=== PATIENT | male | born 1995 | race Caucasian/White ===

== ENCOUNTER 2017-08-01 19:26 | Emergency (ER) | payer OTHER ==
[2017-08-01 19:34] VITALS: BP 133/48
[2017-08-01] MEDS ORDERED: DEXAMETHASONE 10 MG/ML VIAL PO STA (20:36)
[2017-08-01] MEDS ORDERED: KETOROLAC 60 MG/2 ML VIAL IM STA (20:36)
--- NOTE | 2017-08-01 20:37 | ED Physician Documentation ---
PD HPI NECK PAIN - Stated complaint Stated Complaint: NECK PX - Chief complaint Chief Complaint: Ext Problem - History obtained from History obtained from: Patient - History of Present Illness Timing - onset: Yesterday Timing - details: Abrupt onset Location: Lower, Left Quality: Pain, Spasm Associated symptoms: No: Fever, Weakness Worsened by: Movement, Palpation Similar symptoms before: No diagnosis Recently seen: Not recently seen - Additional information Additional information: Patient is a 21 year old male with no significant past medical history who is presenting to the emergency department for neck pain. patient states that he was snowboarding yesterday and went off a jump but caught an edge so he landed on his shoulder and his head. patient states that he had a mild headache today but worsening neck pain. Patient states that he blacked out for a second right after the jump but he denies nausea, vomiting, change in vision or headache today. Review of Systems Constitutional: denies: Fever Eyes: denies: Decreased vision Ears: denies: Drainage/discharge Nose: denies: Epistaxis Throat: denies: Dental pain / toothache Cardiac: denies: Chest pain / pressure, Palpitations Respiratory: denies: Dyspnea GI: denies: Nausea, Vomiting : reports: Reviewed and negative Skin: denies: Lesions, Abrasion (s) Musculoskeletal: reports: Neck pain Neurologic: denies: Generalized weakness, Headache Immunocompromised: denies: Immunocompromised PD PAST MEDICAL HISTORY - Present Medications Home Medications: Ambulatory Orders Medication Instructions Recorded Confirmed Cyclobenzaprine [Flexeril] 10 mg PO TID PRN #14 tablet 08/01/17 - Allergies Allergies/Adverse Reactions: Allergies Allergy/AdvReac Type Severity Reaction Status Date / Time No Known Drug Allergies Allergy Verified 08/01/17 19:33 PD ED PE NORMAL - Vitals Vital signs reviewed: Yes - General General: Alert and oriented X 3, No acute distress - HEENT HEENT: Atraumatic, PERRL - Neck Neck: Supple, no meningeal sign - Cardiac Cardiac: RRR, No murmur - Respiratory Respiratory: No respiratory distress - Abdomen Abdomen: Soft, Non tender, Non distended - Derm Derm: Normal color, No rash - Extremities Extremities: No deformity, Normal ROM s pain - Neuro Neuro: Alert and oriented X 3, No motor deficit, No sensory deficit, Normal speech Eye Opening: Spontaneous Motor: Obeys Commands Verbal: Oriented GCS Score: 15 - Psych Psych: Normal mood PD ED PE EXPANDED - Neck Neck: Soft tissue TTP (tenderness to palpation of scm muscle and trapezious) Results - Vitals Vitals: Vital Signs - 24 hr 08/01/17 19:30 Temperature 37.2 C Heart Rate 56 L Respiratory 16 Rate Blood Pressure 133/48 H O2 Saturation 100 Oxygen O2 Source Room air PD MEDICAL DECISION MAKING - ED course Complexity details: reviewed old records, reviewed results, re-evaluated patient , considered differential, d/w patient ED course: patient was seen and examined at bedside. Patient had no neurological deficits. Patient was treated with decadron and toradol. patient required no futher work up and was stable for discharge with outpatient follow up. Departure - Departure Disposition: Home, Self Care Clinical Impression: Neck muscle strain Condition: Good Instructions: ED Sprain Strain Neck Follow-Up: primary,care provider [Other] - Tomorrow Prescriptions: Cyclobenzaprine [Flexeril] 10 mg PO TID PRN #14 tablet PRN Reason: Spasms Comments: Your symptoms today are likely secondary to a muscle strain. You should ice your neck and take motrin or tylenol as needed for pain. you can take the flexeril as a muscle relaxer but you should not take it with alcohol or other sedatives and you should not drive or work while taking it. You should follow up with your base doctor tomorrow. You may return to the emergency department at any time for new worsening or uncontrollable symptoms. Forms: Activity restrictions Discharge Date/Time: 08/01/17 21:02
== END 2017-08-01 21:02 | disposition home or self-care (01) ==
LOC: ED 19:26
DX: S16.1XXA Strain of muscle, fascia and tendon at neck level, initial encounter (principal); V00.311A Fall from snowboard, initial encounter; Y93.23 Activity, snow (alpine) (downhill) skiing, snowboarding, sledding, tobogganing and snow tubing
CPT/HCPCS: 96372; 99282; 99283